=== PATIENT | female | born 1955 | race Caucasian/White ===

== ENCOUNTER 2020-03-29 07:59 | Outpatient (CLI) | payer BC, SELFPAY ==
--- NOTE | ~2020-03-29 | XR_ITS ---
EXAMINATION: XR abdomen/kub 1V INDICATION: Left kidney stone TECHNIQUE: Supine views of the abdomen were obtained on 2 radiographs. COMPARISON: 06/06/2011 FINDINGS: A left internal ureteral stent coils in the bladder and in the left renal pelvis. There is a 3 mm stone of the left kidney lower pole. There are also questionable stones near the distal aspect of the internal ureteral stent at the left ureterovesicular junction. No definite right-sided urinar y tract stones are identified. IMPRESSION: 1. Left internal ureteral stent in expected position with likely stones near the left ureterovesicula r junction as well as in the left kidney lower pole. Reviewed, dictated and finalized at location A. IMPRESSION: 1. Left internal ureteral stent in expected position with likely stones near th e left ureterovesicular junction as well as in the left kidney lower pole.
== END 2020-03-29 08:00 | disposition home or self-care (01) ==
LOC: ANHIMG 08:06
PROVIDERS: PCP Internal Medicine; Visit Provider Urology
DX: N20.0 Calculus of kidney (principal)
CPT/HCPCS: 74018

== ENCOUNTER 2020-04-20 07:58 | Outpatient (CLI) | payer BC, SELFPAY ==
--- NOTE | ~2020-04-20 | US_ITS ---
EXAMINATION: US retroperitoneal comp DATE: 04/20/2020 08:41 INDICATION: Calculus of kidney. TECHNIQUE: Multiple ultrasound grayscale images of the kidneys were obtained. COMPARISON: Abdomen radiographs 03/29/2020 FINDINGS: The right kidney measures 11.1 x 5.0 x 4.7 cm. The left kidney measures 10.9 x 5.3 x 5.2 cm. The kidn eys demonstrate normal parenchymal echogenicity. There is a 4.1 cm cyst in right kidney. There is no hydronephrosis. The bladder is normal. IMPRESSION: 1. Normal kidney sizes. No hydronephrosis. Reviewed, dictated and finalized at location A.
== END 2020-04-20 07:59 | disposition home or self-care (01) ==
LOC: ANHIMG 08:00
PROVIDERS: PCP Internal Medicine; Visit Provider Urology
DX: N20.0 Calculus of kidney (principal)
CPT/HCPCS: 76770

== ENCOUNTER 2021-05-24 14:40 | Outpatient (CLI) | payer BC, SELFPAY ==
--- NOTE | ~2021-05-24 | XR_ITS ---
EXAMINATION: XR abdomen/kub 1V DATE: 05/24/2021 15:03 INDICATION: Calculus of kidney. TECHNIQUE: A supine view of the abdomen on 2 radiographs was obtained. COMPARISON: Abdomen radiographs 03/29/2020 FINDINGS: There are no dilated loops of bowel. There is a 3 mm stone in right kidney. There are 4 mm and 2 mm stones in left kidney. There are phleboliths in the pelvis. IMPRESSION: 1. Bilateral kidney stones. Reviewed, dictated and finalized at location A. IMPRESSION: 1. Bilateral kidney stones.
== END 2021-05-24 14:41 | disposition home or self-care (01) ==
LOC: ANHIMG 14:46
PROVIDERS: PCP Internal Medicine; Visit Provider Urology
DX: N20.0 Calculus of kidney (principal)
CPT/HCPCS: 74018

== ENCOUNTER 2022-06-05 11:26 | Outpatient (CLI) | payer MEDICARE, SELFPAY ==
--- NOTE | ~2022-06-05 | XR_ITS ---
EXAMINATION: XR abdomen/kub 1V DATE: 06/05/2022 11:51 INDICATION: Calculus of kidney. TECHNIQUE: A supine view of the abdomen on 2 radiographs was obtained. COMPARISON: Abdomen radiographs 05/24/2021 FINDINGS: There are no dilated loops of bowel. There is a 3 mm stone in right kidney. There is a 10 m m stone in left kidney. There are two 3 mm stones in left kidney. There are phleboliths in the pelvis . IMPRESSION: 1. Bilateral kidney stones. Reviewed, dictated and finalized at location A. IMPRESSION: 1. Bilateral kidney stones.
== END 2022-06-05 11:27 | disposition home or self-care (01) ==
LOC: ANHIMG 11:36
PROVIDERS: PCP Internal Medicine; Visit Provider Urology
DX: N20.0 Calculus of kidney (principal)
CPT/HCPCS: 74018

== ENCOUNTER 2022-06-16 12:22 | Outpatient (CLI) | payer MEDICARE, SELFPAY ==
[2022-06-16 13:37] LABS: INR 1.1; Prothrombin Time 13.4 Seconds (11.1-14.7)
[2022-06-16 13:38] LABS: Partial Thromboplastin Time 28.9 SECONDS (22.3-36.8)
== END 2022-06-16 12:23 | disposition home or self-care (01) ==
LOC: ANHSURGERY 12:38
PROVIDERS: Visit Provider Urology
DX: N20.0 Calculus of kidney (principal); Z01.818 Encounter for other preprocedural examination
CPT/HCPCS: 36415; 85610; 85730; 87077; 87086; 87186

== ENCOUNTER 2022-06-26 09:50 | Outpatient (CLI) | payer MEDICARE, SELFPAY ==
[2022-06-26 10:27] LABS: Prothrombin Time 12.8 Seconds (11.1-14.7)
[2022-06-26 10:28] LABS: Partial Thromboplastin Time 29.7 SECONDS (22.3-36.8)
== END 2022-06-26 09:51 | disposition home or self-care (01) ==
LOC: ANHSURGERY 09:54
PROVIDERS: PCP Physician Assistant Medical; Visit Provider Urology
DX: N20.0 Calculus of kidney (principal); Z01.818 Encounter for other preprocedural examination
CPT/HCPCS: 36415; 85610; 85730; 87086; 87088

== ENCOUNTER 2022-07-03 10:11 | Outpatient (CLI) | payer MEDICARE, SELFPAY ==
[2022-07-03 10:48] LABS: Add Urine Microscopic? YES; Appearance Urine Clear (Clear); Bilirubin Urine Negative (Negative); Blood Urine 1+ (Negative); Color Urine Straw (Yellow); Glucose Urine UA Negative (Negative); Ketones Urine Negative (Negative); Leukocyte Esterase Ur Negative LEU/UL (Negative); Nitrate Urine Negative (Negative); Protein Urine Negative (Negative); Specific Grav Ur 1.006 (1.001-1.035); Squamous Epithelial Cell Urine Rare /hpf (Few); Urobilinogen Urine Negative mg/dL (<2.0); WBC Urine 0-3 /hpf
== END 2022-07-03 10:12 | disposition home or self-care (01) ==
PROVIDERS: PCP Physician Assistant Medical; Visit Provider Urology
DX: N20.0 Calculus of kidney (principal)
CPT/HCPCS: 81001

== ENCOUNTER 2022-07-04 01:01 | Day surgery (SDC) | payer MEDICARE, SELFPAY ==
[2022-06-13 15:31] VITALS: BMI 33.3
--- NOTE | 2022-06-13 15:50 | PC.NURSE ---
Report to the Outpatient Waiting Room, entrance under the green pavilion located off [facility], at time __9:00AM on date ___06/20/22____. OR Time: ___11:00AM . Time changes happen often and if your time is changed the preop area will call you the afternoon before. - You and your visitor will be asked to self-screen and do not enter if you have any COVID symptoms. - Only one visitor and NO children visitors are allowed at this time. - The patient visitor is requested to leave or wait in car when not with patient due to restrictions. - A mask is required within the hospital. Patients may have clear liquids (water, carbonated beverages, clear teas, apple juice) until 3 hours prior to surgery with a maximum of 20 ounces. - No food from midnight until time of surgery Take the following medications with a SIP of water the morning of surgery: NONE Medications to discontinue per physician HOLD ALL VITAMINS/SUPPLEMENTS AND EXCEDRIN 7 DAYS PRE-OP Date to take last dose____06/13/22 Please no make-up, nail setswana, hairspray, perfume, deodorant, or body powder the day of surgery. No jewelry (including any body piercings) or valuables the day of surgery, leave them at home. Please take a shower or bath the night before, or the morning of, surgery with an antibacterial soap. Wear comfortable, loose fitting clothing. Children are encouraged to wear pajamas. - Jewelry must be removed prior to entering the operating room. Rings and piercings that are not removed may be cut off. - The hospital will not accept responsibility for valuables. - Please leave all valuables, including medications, at home the day of surgery. If you are going home after surgery, a licensed motorcoach driver must drive you home. - NO public transportation without another adult. - We recommend that an adult stay with you for 24 hours following discharge. - We also recommend that you do not drive, make important decision, drink alcoholic beverages, or take any drugs that were not prescribed by your health care provider for at least 24 hours after your discharge time. Follow any additional instructions given to you from your surgeon. If you or anyone in your household have experienced Covid symptoms in the past week, please notify your surgeon or the nurse liaison at the phone number below for possible testing. Telephone instructions given to ___PATIENT and asked if any additional questions and then verbalized understanding. Patient advised to call surgeon office or pre surgery nurse liaison [phone] if any additional questions.
--- NOTE | 2022-06-24 08:56 | PC.NURSE ---
Report to the Outpatient Waiting Room, entrance under the green pavilion located off [facility], at time __6:00AM on date ___07/04/22____. OR Time: __7:30AM . Time changes happen often and if your time is changed the preop area will call you the afternoon before. - You and your visitor will be asked to self-screen and do not enter if you have any COVID symptoms. - Only one visitor and NO children visitors are allowed at this time. - The patient visitor is requested to leave or wait in car when not with patient due to restrictions. - A mask is required within the hospital. Patients may have clear liquids (water, carbonated beverages, clear teas, apple juice) until 3 hours prior to surgery with a maximum of 20 ounces. - No food from midnight until time of surgery Take the following medications with a SIP of water the morning of surgery: ____NONE Medications to discontinue per physician HOLD ASPIRIN(EXCEDERIN) 7 DAYS PRE-OP PER DR LAW Date to take last dose 06/27/22 Please no make-up, nail comoran, hairspray, perfume, deodorant, or body powder the day of surgery. No jewelry (including any body piercings) or valuables the day of surgery, leave them at home. Please take a shower or bath the night before, or the morning of, surgery with an antibacterial soap. Wear comfortable, loose fitting clothing. Children are encouraged to wear pajamas. - Jewelry must be removed prior to entering the operating room. Rings and piercings that are not removed may be cut off. - The hospital will not accept responsibility for valuables. - Please leave all valuables, including medications, at home the day of surgery. If you are going home after surgery, a licensed driver's license reviewing officer must drive you home. - NO public transportation without another adult. - We recommend that an adult stay with you for 24 hours following discharge. - We also recommend that you do not drive, make important decision, drink alcoholic beverages, or take any drugs that were not prescribed by your health care provider for at least 24 hours after your discharge time. Follow any additional instructions given to you from your surgeon. If you or anyone in your household have experienced Covid symptoms in the past week, please notify your surgeon or the nurse liaison at the phone number below for possible testing. Telephone instructions given to __PATIENT and asked if any additional questions and then verbalized understanding. Patient advised to call surgeon office or pre surgery nurse liaison [phone] if any additional questions.
[2022-07-04] VITALS (9 sets, daily range): BP systolic 101–133; BP diastolic 52–73; PULSE 65–81; RESP 14–18; TEMP 36.5–36.8; O2SAT 98–100
--- NOTE | ~2022-07-04 | XR_ITS ---
EXAMINATION: XR abdomen/kub 1V DATE: 07/04/2022 06:11 INDICATION: Kidney stone. TECHNIQUE: A supine view of the abdomen on 2 radiographs was obtained. COMPARISON: Abdomen radiographs 06/05/2022 FINDINGS: There are no dilated loops of bowel. There is a 3 mm stone in right kidney. There are 6 mm and 3 mm stones in left kidney. IMPRESSION: 1. Bilateral kidney stones. Reviewed, dictated and finalized at location A. IMPRESSION: 1. Bilateral kidney stones.
[2022-07-04] MEDS: LACTATED RINGERS 1,000 ML 30 ML IV CONT (07:12)
[2022-07-04] MEDS: SCOPOLAMINE 1.5 MG PATCH TRANSDERM (07:12)
--- NOTE | 2022-07-04 07:15 | WPDHPUPDATE1 ---
History and Physical Update Update Date/Time: 07/04/22 07:15 History and Physical has been reviewed, including an updated exam of the patient. There are NO changes in the patient's condition. Risks, benefits, and alternatives have been discussed and questions answered. Patient agrees to proceed with procedure.
[2022-07-04] MEDS: ceFAZolin 2 GM/D5W 50 ML 2 GM/50 ML BAG IVPB (07:25)
--- NOTE | 2022-07-04 08:09 | W.PM.PROC2 ---
Procedure Note - Detailed Date of Procedure 07/04/22 Pre-op Diagnosis Left renal calculus Post-op Diagnosis Same Procedure Performed Lithotripsy of left renal calculus Surgeon Wil Barrow MD Anesthesia General Description of Procedure Patient is taken the operative suite correctly identified. Once anesthesia was obtained stone was localized in both planes. Two thousand five hundred shocks were given the stone. There appeared to be good fragmentation. Patient was taken recovery stable condition. She follow-up in 7-10 days with K[facility]. Drains No Packing No Pathology None sent Complications No immediate complications Condition Stable Disposition PACU
== END 2022-07-04 09:42 | disposition home or self-care (01) ==
PROVIDERS: PCP Physician Assistant Medical; Visit Provider Urology
PROC: (CPT 50590; principal; 2022-07-04 07:30)
DX: N20.0 Calculus of kidney (principal)
CPT/HCPCS: 50590; 74018; A9270; J0690; J1100; J2250; J2405; J2704; J3010; J7120

== ENCOUNTER 2023-07-13 11:49 | Outpatient (CLI) | payer MEDICARE, SELFPAY ==
--- NOTE | ~2023-07-13 | XR_ITS ---
Supine and upright views of the abdomen Clinical history: Renal stone COMPARISON: 07/04/2022 Findings: Bowel gas pattern is nonspecific. No evidence for obstruction or free air. Small bilateral renal stones are probably present. Osseous structures are intact. Impression: Suspected small bilateral renal stones. Reviewed, dictated and finalized at [facility]. Impression: Suspected small bilateral renal stones.
== END 2023-07-13 11:50 | disposition home or self-care (01) ==
PROVIDERS: PCP Physician Assistant Medical; Visit Provider Urology
DX: N20.0 Calculus of kidney (principal)
CPT/HCPCS: 74018

== ENCOUNTER 2024-07-21 11:18 | Outpatient (CLI) | payer MEDICARE, SELFPAY ==
--- NOTE | ~2024-07-21 | XR_ITS ---
XR abdomen/kub 1V Ordering provider: Wil Barrow MD History: . calculus of kidney LT SIDED SURGERY 1 YR AGO . Comparison: July 13, 2023 FINDINGS: BOWEL: Nonobstructive bowel gas pattern. ORGANOMEGALY: None. SIGNIFICANT PATHOLOGIC CALCIFICATIONS: Tiny calcifications seen in the left renal area which may be s tones. Tiny stones in the right kidney upper pole is not excluded although fecal material is overlapping the area. OTHER: No free air is seen under the diaphragm. IMPRESSION: Tiny left kidney stones. Possible right kidney upper pole stones. Reviewed, dictated and finalized at location A.
== END 2024-07-21 11:19 | disposition home or self-care (01) ==
PROVIDERS: PCP Physician Assistant Medical; Visit Provider Urology
DX: N20.0 Calculus of kidney (principal)
CPT/HCPCS: 74018